=== PATIENT | female | born 1965 ===

== ENCOUNTER 2016-06-21 10:45 | Outpatient (CLI) | payer OTHER | END 2016-06-21 10:46 | disposition home or self-care (01) | DX: E55.9 Vitamin D deficiency, unspecified (principal); Z51.81 Encounter for therapeutic drug level monitoring; Z12.11 Encounter for screening for malignant neoplasm of colon ==

== ENCOUNTER 2017-05-30 09:29 | Outpatient (CLI) | payer OTHER ==
[2017-05-30 17:49] LABS: BASOPHILS % (AUTO) 0.5 %; EOSINOPHILS # (AUTO) 0.3 10^3/uL (0.0-0.7); HGB - HEMOGLOBIN 14.8 g/dL (12.0-16.0); LYMPHOCYTES # (AUTO) 2.5 10^3/uL (1.5-3.5); LYMPHOCYTES % (AUTO) 38.1 %; MEAN CORPUSCULAR HEMOGLOBIN 29.5 pg (27.0-31.0); MEAN CORPUSCULAR HGB CONC 33.3 g/dL (32.0-36.0); MEAN CORPUSCULAR VOLUME 88.5 fL (81.0-99.0); MEAN PLATELET VOLUME 7.4 fL (7.9-10.8); MONOCYTES # (AUTO) 0.4 10^3/uL (0.0-1.0); MONOCYTES % (AUTO) 6.9 %; NEUTROPHILS # (AUTO) 3.2 10^3/uL (1.5-6.6); NEUTROPHILS % (AUTO) 50.5 %; PLT - PLATELET COUNT 287 10^3/uL (130-450); RED BLOOD COUNT 5.02 10^6/uL (4.20-5.40); RED CELL DISTRIBUTION WIDTH 12.4 % (12.0-15.0); WHITE BLOOD COUNT 6.4 x10^3/uL (4.8-10.8)
[2017-05-30 18:09] LABS: ALBUMIN 4.3 g/dL (3.2-5.5); ALBUMIN/GLOBULIN RATIO 1.4 (1.0-2.2); ALKALINE PHOSPHATASE 39 IU/L (42-121); ALT ALANINE AMINOTRANSFERASE 17 IU/L (10-60); AST ASPARTATE AMINOTRANSFERASE 19 IU/L (10-42); BILIRUBIN,TOTAL 0.6 mg/dL (0.2-1.0); BUN - BLOOD UREA NITROGEN 17 mg/dL (6-20); CARBON DIOXIDE - CO2 29 mmol/L (21-32); CHLORIDE 104 mmol/L (101-111); CHOL/HDL RATIO 2.5 (<4.4); CHOLESTEROL 225 mg/dL; CREATININE 0.6 mg/dL (0.4-1.0); GFR - MDRD 105 (>89); GLUCOSE 86 mg/dL (70-100); HDL CHOLESTEROL 90 mg/dL; LDL CHOLESTEROL,CALCULATED 121 mg/dL; LDL/HDL RATIO 1.3 (<4.4); SODIUM 140 mmol/L (135-145); TOTAL PROTEIN 7.3 g/dL (6.7-8.2); VLDL CHOLESTEROL 14 mg/dL
== END 2017-05-30 09:30 | disposition home or self-care (01) ==
LOC: LAB.F 09:29
PROVIDERS: ATTEND Physician Assistant Medical
DX: Z00.00 Encounter for general adult medical examination without abnormal findings (principal); Z79.899 Other long term (current) drug therapy; E55.9 Vitamin D deficiency, unspecified
CPT/HCPCS: 36415; 80053; 80061; 82306; 84443; 85025

== ENCOUNTER 2019-09-11 17:06 | Outpatient (CLI) | payer OTHER | END 2019-09-11 17:07 | disposition home or self-care (01) | LOC: COV 17:06 | PROVIDERS: ATTEND Family Medicine | DX: R06.02 Shortness of breath (principal); R06.2 Wheezing; R53.83 Other fatigue; J02.9 Acute pharyngitis, unspecified | CPT/HCPCS: 81599 ==

== ENCOUNTER 2019-12-11 15:26 | Outpatient (CLI) | payer OTHER | END 2019-12-11 15:27 | disposition home or self-care (01) | LOC: LAB.S 15:26 | PROVIDERS: ATTEND Nurse Practitioner Family | DX: R53.81 Other malaise (principal); R53.83 Other fatigue | CPT/HCPCS: 36415; 81599; 84443; 85379; 86308; 86664; 86665; 86769 ==

== ENCOUNTER 2019-12-20 13:25 | Outpatient (CLI) | payer OTHER ==
--- NOTE | 2019-12-20 14:32 | XRAY Report ---
PROCEDURE: Chest 2 View X-Ray INDICATIONS: COUGH TECHNIQUE: 2 view(s) of the chest. COMPARISON: Chest x-ray examination dated 12.29.15. FINDINGS: Surgical changes and devices: None. Lungs and pleura: No pleural effusions or pneumothorax. Lungs are clear. Mediastinum: Mediastinal contours are normal. Heart size is normal. Bones and chest wall: No suspicious bony abnormalities. Soft tissues appear unremarkable. IMPRESSION: No acute process. Reviewed by: Derek Snow MD on 12/20/2019 2:30 PM PDT Approved by: Derek Snow MD on 12/20/2019 2:30 PM PDT Station ID: [id number]
== END 2019-12-20 13:26 | disposition home or self-care (01) ==
LOC: DI.S 13:25
PROVIDERS: ATTEND Nurse Practitioner Family
DX: R05 Cough (principal); R53.83 Other fatigue; R53.81 Other malaise
CPT/HCPCS: 36415; 71046; 81599; 84443; 85379; 86308; 86769

== ENCOUNTER 2020-07-24 13:31 | Outpatient (CLI) | payer OTHER ==
--- NOTE | 2020-07-24 14:06 | XRAY Report ---
PROCEDURE: Wrist 4 View LT INDICATIONS: PAIN IN LEFT FINGERS TECHNIQUE: 4 views of the wrist were acquired. COMPARISON: None FINDINGS: Bones: No fractures or dislocations. No suspicious bony lesions. Scaphoid view: Negative Soft tissues: No suspicious soft tissue calcifications. IMPRESSION: No acute fracture. No osseous lesion. If symptoms and/or clinical suspicion for pathology continue, f urther assessment with repeat plain films, or advanced imaging (e.g., CT, MRI, or bone scan) is recom mended for further assessment. Reviewed by: Derek Snow MD on 07/24/2020 1:05 PM [facility] Approved by: Derek Snow MD on 07/24/2020 1:05 PM [facility] Station ID: [id number]
--- NOTE | 2020-07-24 14:08 | XRAY Report ---
PROCEDURE: Hand 3 View LT INDICATIONS: PAIN IN LEFT FINGERS TECHNIQUE: 3 views of the hand(s) acquired. COMPARISON: None FINDINGS: Bones: No fractures or dislocations. No suspicious bony lesions. Soft tissues: No suspicious soft tissue calcifications. IMPRESSION: No acute fracture. No osseous lesion. If symptoms and/or clinical suspicion for pathology continue, f urther assessment with repeat plain films, or advanced imaging (e.g., CT, MRI, or bone scan) is recom mended for further assessment. Reviewed by: Derek Snow MD on 07/24/2020 1:07 PM [facility] Approved by: Derek Snow MD on 07/24/2020 1:07 PM [facility] Station ID: [id number]
== END 2020-07-24 13:32 | disposition home or self-care (01) ==
LOC: DI.S 13:31
PROVIDERS: ATTEND Nurse Practitioner Family
DX: M79.645 Pain in left finger(s) (principal)

== ENCOUNTER 2021-01-10 13:21 | Outpatient (CLI) | payer OTHER | END 2021-01-10 13:22 | disposition home or self-care (01) | LOC: LAB.S 13:21 | PROVIDERS: ATTEND Nurse Practitioner Family | DX: G93.3 Postviral and related fatigue syndromes (principal) | CPT/HCPCS: 36415 ==

== ENCOUNTER 2021-02-07 07:34 | Outpatient (CLI) | payer OTHER ==
[2021-02-07 14:20] LABS: BASOPHILS # (AUTO) 0.1 10^3/uL (0.0-0.1); BASOPHILS % (AUTO) 0.6 %; EOSINOPHILS # (AUTO) 0.3 10^3/uL (0.0-0.7); EOSINOPHILS % (AUTO) 3.9 %; HCT - HEMATOCRIT 44.3 % (37.0-47.0); HGB - HEMOGLOBIN 14.1 g/dL (12.0-16.0); LYMPHOCYTES # (AUTO) 3.9 10^3/uL (1.5-3.5); MEAN CORPUSCULAR HEMOGLOBIN 29.3 pg (27.0-31.0); MEAN CORPUSCULAR HGB CONC 31.8 g/dL (32.0-36.0); MEAN CORPUSCULAR VOLUME 92.1 fL (81.0-99.0); MEAN PLATELET VOLUME 9.9 fL (7.9-10.8); MONOCYTES # (AUTO) 0.6 10^3/uL (0.0-1.0); NEUTROPHILS # (AUTO) 3.3 10^3/uL (1.5-6.6); NEUTROPHILS % (AUTO) 40.3 %; PLT - PLATELET COUNT 274 10^3/uL (130-450); RED BLOOD COUNT 4.81 10^6/uL (4.20-5.40); WHITE BLOOD COUNT 8.2 x10^3/uL (4.8-10.8)
[2021-02-07 14:28] LABS: ALBUMIN 4.3 g/dL (3.2-5.5); ALBUMIN/GLOBULIN RATIO 1.5 (1.0-2.2); ALKALINE PHOSPHATASE 61 IU/L (42-121); ALT ALANINE AMINOTRANSFERASE 19 IU/L (10-60); AST ASPARTATE AMINOTRANSFERASE 20 IU/L (10-42); BILIRUBIN,TOTAL 0.7 mg/dL (0.2-1.0); BUN - BLOOD UREA NITROGEN 18 mg/dL (6-20); CALCIUM 9.1 mg/dL (8.5-10.3); CARBON DIOXIDE - CO2 28 mmol/L (21-32); CHLORIDE 101 mmol/L (101-111); CHOL/HDL RATIO 2.5 (<4.4); CHOLESTEROL 218 mg/dL; CREATININE 0.7 mg/dL (0.4-1.0); GFR - MDRD 87 (>89); GLUCOSE 97 mg/dL (70-100); HDL CHOLESTEROL 88 mg/dL; LDL CHOLESTEROL,CALCULATED 112 mg/dL; LDL/HDL RATIO 1.3 (<4.4); POTASSIUM 3.5 mmol/L (3.5-5.0); SODIUM 141 mmol/L (135-145); TOTAL PROTEIN 7.2 g/dL (6.7-8.2); TRIGLYCERIDES 91 mg/dL; VLDL CHOLESTEROL 18 mg/dL
== END 2021-02-07 07:35 | disposition home or self-care (01) ==
LOC: LAB.S 07:34
PROVIDERS: ATTEND Nurse Practitioner Family
DX: R53.82 Chronic fatigue, unspecified (principal); Z13.220 Encounter for screening for lipoid disorders
CPT/HCPCS: 36415; 80053; 80061; 83721; 85025

== ENCOUNTER 2021-05-05 08:42 | Outpatient (CLI) | payer OTHER ==
[2021-05-05] MEDS ORDERED: GADOBUTROL 10 MMOL/10 ML VIAL ONE (09:02)
[2021-05-05] MEDS: GADOBUTROL 10 MMOL/10 ML VIAL IVP ONE (09:33)
--- NOTE | 2021-05-05 10:32 | MRI Report ---
PROCEDURE: Brain W/WO INDICATIONS: CHRONIC HEADACHE CONTRAST: IV CONTRAST: Gadavist ml: 7.0 TECHNIQUE: Noncontrast axial T1 spin echo, axial T2 fast spin echo, sagittal and axial FLAIR, coronal T2 fast sp in echo, axial gradient echo, axial diffusion and ADC through the brain. After the administration of contrast, axial and coronal T1 spin echo with fat saturation through the brain. COMPARISON: None. FINDINGS: Image quality: Excellent. CSF spaces: Basal cisterns are patent. No extra-axial fluid collections. Ventricles are normal in size and shape. Brain: No midline shift. No intracranial bleeds or masses. No abnormal intracranial enhancement. There is mild cerebral volume loss for age. There is mild periventricular white matter chronic small vessel ischemic change. The brainstem appears normal. Diffusion-weighted images demonstrate no acu te ischemic insults. No chronic ischemic insults. Normal intravascular flow voids are present. The dural sinuses demonstrate normal postcontrast enhancement. Skull and face: Calvarial marrow is normal in signal. Orbits appear normal. Sinuses: Small mucous retention cyst versus polyp noted in the left maxillary sinus. Mild mucosal thi ckening in the floor of the right maxillary sinus. Mastoids appear clear. IMPRESSION: 1. No acute intracranial disease process. 2. No abnormal intracranial mass or mass effect. 3. No suspicious postcontrast enhancement. 4. Mild, diffuse cerebral volume loss. 5. Mild periventricular and subcortical white matter chronic microvascular ischemic change. Reviewed by: Shu Benton MD, PhD on 05/05/2021 10:30 AM [facility] Approved by: Shu Benton MD, PhD on 05/05/2021 10:30 AM [facility] Station ID: [id number]
== END 2021-05-05 08:43 | disposition home or self-care (01) ==
LOC: DI 08:42
PROVIDERS: ATTEND Psychiatry & Neurology Neurology
DX: G43.711 Chronic migraine without aura, intractable, with status migrainosus (principal); I67.82 Cerebral ischemia
CPT/HCPCS: 70553; A9585

== ENCOUNTER 2021-05-18 08:00 | Outpatient (CLI) | payer OTHER ==
[2021-05-18 15:38] LABS: THYROID STIMULATING HORMONE 1.34 uIU/mL (0.34-5.60)
== END 2021-05-18 23:59 | disposition home or self-care (01) ==
LOC: LAB.S 08:00
PROVIDERS: ATTEND Psychiatry & Neurology Neurology
DX: G43.711 Chronic migraine without aura, intractable, with status migrainosus (principal)
CPT/HCPCS: 36415; 82607; 83921; 84443

== ENCOUNTER 2021-06-06 14:53 | Outpatient (CLI) | payer OTHER ==
[2021-06-06 21:43] LABS: ALBUMIN 4.6 g/dL (3.2-5.5); ALBUMIN/GLOBULIN RATIO 1.5 (1.0-2.2); BILIRUBIN,TOTAL 0.6 mg/dL (0.2-1.0); CREATININE 0.6 mg/dL (0.4-1.0); TOTAL PROTEIN 7.7 g/dL (6.7-8.2)
[2021-06-06 21:50] LABS: CALCIUM 10.1 mg/dL (8.5-10.3)
== END 2021-06-06 14:54 | disposition home or self-care (01) ==
LOC: LAB.S 14:53
PROVIDERS: ATTEND Nurse Practitioner Family
DX: Z76.89 Persons encountering health services in other specified circumstances (principal); Z79.899 Other long term (current) drug therapy
CPT/HCPCS: 36415; 80053

== ENCOUNTER 2021-09-07 23:14 | Emergency (ER) | payer OTHER ==
[2021-09-07 23:26] VITALS: BP 160/89
--- NOTE | 2021-09-07 23:52 | ED Physician Documentation ---
PD HPI OPHTHO - Stated complaint Stated Complaint: RT EYE FLASH/BLURRY - Chief complaint Chief Complaint: Heent - History obtained from History obtained from: Patient - History of Present Illness Timing - onset: Enter time (0600), Today Timing - duration: Hours Timing - details: Abrupt onset, Still present Location: Right Quality / character: Other (blurring of vision floaters and flashes) Associated symptoms: No: Redness, Swelling, Tearing, Discharge, Matting, FB s ensation, Photophobia, Double vision, Decreased vision, Loss of vision, Headache Contributing factors: Other (has long covid) Similar symptoms before: Has not had sx before Recently seen: Not recently seen - Additional information Additional information: 56-year-old nearsighted Maura Gupta presented to the emergency department this evening with a chief complaint of some blurring of her vision that occurred this morning and was accompanied by floaters in the peripheral vision and later this evening by a flash in the peripheral vision. She has not had pain she has not had decrease in her visual acuity. She has not had this happen to her previously. She does have a history of long COVID after having COVID in July 2019. Review of Systems Constitutional: reports: Myalgias, Fatigue, Other ("brain fog" of long covid). denies: Fever, Chills Eyes: reports: Other (floaters, flashes and blurring of vision). denies: Decreased vision Ears: denies: Ear pain Nose: denies: Congestion Throat: denies: Sore throat Cardiac: denies: Chest pain / pressure Respiratory: denies: Dyspnea, Cough GI: reports: Diarrhea. denies: Abdominal Pain, Nausea, Vomiting Skin: denies: Rash Musculoskeletal: denies: Neck pain, Back pain Neurologic: denies: Generalized weakness, Focal weakness, Numbness PD PAST MEDICAL HISTORY - Past Medical History Past Medical History: Yes Neuro: Migraines Musculoskeletal: Other - Past Surgical History Past Surgical History: No - Present Medications Home Medications: Ambulatory Orders Medication Instructions Recorded Confirmed Duloxetine HCl [Cymbalta] 60 mg PO 09/07/21 Maraviroc 300 mg PO BID 09/07/21 09/07/21 Promethazine [Phenergan] 25 mg PO Q6H PRN 09/07/21 09/07/21 Sumatriptan Succinate [Imitrex] 100 mg PO PRN PRN 09/07/21 09/07/21 tiZANidine [Zanaflex] 8 mg PO Q8H 09/07/21 09/07/21 traMADol [Ultram] 100 mg PO Q6H 09/07/21 09/07/21 - Allergies Allergies/Adverse Reactions: Allergies Allergy/AdvReac Type Severity Reaction Status Date / Time No Known Drug Allergies Allergy Verified 09/07/21 23:26 - Social History Does the pt smoke?: No Smoking Status: Never smoker Does the pt drink ETOH?: No Does the pt have substance abuse?: No - Immunizations Immunizations are current?: Yes PD ED PE NORMAL - Vitals Vital signs reviewed: Yes (hypertensive) - General General: Alert and oriented X 3, No acute distress, Well developed/nourished - HEENT HEENT: Atraumatic, PERRL, EOMI - Neck Neck: Supple, no meningeal sign - Respiratory Respiratory: No respiratory distress - Derm Derm: Normal color, Warm and dry, No rash - Extremities Extremities: No deformity, No edema - Neuro Neuro: Alert and oriented X 3, race steward 2-12 intact, No motor deficit, No sensory deficit, Normal speech Eye Opening: Spontaneous Motor: Obeys Commands Verbal: Oriented GCS Score: 15 - Psych Psych: Normal mood, Normal affect Results - Vitals Vitals: Vital Signs - 24 hr 09/07/21 23:21 Temperature 36.4 C L Heart Rate 96 Respiratory 18 Rate Blood Pressure 160/89 H O2 Saturation 97 Oxygen O2 Source Room air Procedures - Bedside sono Bedside sono by EMP: With use of bedside ultrasound the right thigh is examined. There is evidence of vitreal detachment which is mild laterally. There does appear to be some debris in the vitreous as well. The images shared with the patient for photographing for follow-up. PD MEDICAL DECISION MAKING - ED course Complexity details: considered differential, d/w patient ED course: 56-year-old female with onset today of flashes and floaters in the right eye appears to have a partial vitreal detachment and follow-up with ophthalmology as indicated. I have had the patient photograph the images from our ultrasound exam today to share with the valve seater operator tomorrow. I have referred her to Dr. Nam. Departure - Departure Disposition: 01 Home, Self Care Clinical Impression: Vitreous detachment of right eye Condition: Stable Instructions: Flashes and Floaters Follow-Up: Kwesi Nam MD [Provider Admit Priv/Credential] - Comments: Marti, today it looks like you have a partial vitreal detachment and this is likely the cause of your visual disturbance. An urgent follow-up with the valve seater operator is indicated and I have referred you to Dr. Nam in [place] please call his office in the morning and indicate you are following up from the emergency department and need to be seen urgently.
== END 2021-09-08 00:18 | disposition home or self-care (01) ==
LOC: ED 23:14
DX: H43.811 Vitreous degeneration, right eye (principal)
CPT/HCPCS: 99281; 99283

== ENCOUNTER 2021-09-23 13:31 | Outpatient (CLI) | payer OTHER ==
[2021-09-23 20:10] LABS: ALBUMIN 4.1 g/dL (3.2-5.5); ALBUMIN/GLOBULIN RATIO 1.4 (1.0-2.2); BILIRUBIN,TOTAL 0.6 mg/dL (0.2-1.0); CALCIUM 9.3 mg/dL (8.5-10.3); CREATININE 0.5 mg/dL (0.4-1.0); POTASSIUM 4.2 mmol/L (3.5-5.0); TOTAL PROTEIN 7.1 g/dL (6.7-8.2)
[2021-09-25 08:08] LABS: EBV AB VCA IGG <18.0 U/mL (0.0-17.9); EBV AB VCA IGM <36.0 U/mL (0.0-35.9); EBV NUCLEAR ANTIGEN AB IGG >600.0 U/mL (0.0-17.9)
== END 2021-09-23 13:32 | disposition home or self-care (01) ==
LOC: LAB.S 13:31
DX: U07.1 COVID-19 (principal); R53.82 Chronic fatigue, unspecified
CPT/HCPCS: 36415; 80053; 86664; 86665

== ENCOUNTER 2021-11-07 13:35 | Outpatient (CLI) | payer SELFPAY | END 2021-11-07 13:36 | disposition home or self-care (01) | LOC: LAB 13:35 | PROVIDERS: ATTEND Family Medicine | DX: G93.3 Postviral and related fatigue syndromes (principal) | CPT/HCPCS: 36415 ==

== ENCOUNTER 2022-01-23 12:34 | Outpatient (CLI) | payer OTHER | END 2022-01-23 12:35 | disposition home or self-care (01) | LOC: LAB 12:34 | PROVIDERS: ATTEND Family Medicine | DX: Z01.89 Encounter for other specified special examinations (principal) | CPT/HCPCS: 36415 ==

== ENCOUNTER 2022-04-03 11:57 | Outpatient (CLI) | payer SELFPAY | END 2022-04-03 11:58 | disposition home or self-care (01) | LOC: LAB 11:57 | PROVIDERS: ATTEND Family Medicine | DX: Z01.89 Encounter for other specified special examinations (principal) | CPT/HCPCS: 36415 ==

== ENCOUNTER 2022-05-02 08:00 | Outpatient (CLI) | payer OTHER ==
[2022-05-02 14:39] LABS: BASOPHILS # (AUTO) 0.1 10^3/uL (0.0-0.1); BASOPHILS % (AUTO) 0.7 %; EOSINOPHILS # (AUTO) 0.4 10^3/uL (0.0-0.7); EOSINOPHILS % (AUTO) 4.7 %; HCT - HEMATOCRIT 39.7 % (37.0-47.0); LYMPHOCYTES # (AUTO) 3.7 10^3/uL (1.5-3.5); LYMPHOCYTES % (AUTO) 43.4 %; MEAN CORPUSCULAR HEMOGLOBIN 29.3 pg (27.0-31.0); MEAN CORPUSCULAR HGB CONC 32.7 g/dL (32.0-36.0); MEAN CORPUSCULAR VOLUME 89.6 fL (81.0-99.0); MEAN PLATELET VOLUME 9.7 fL (7.9-10.8); MONOCYTES # (AUTO) 0.6 10^3/uL (0.0-1.0); MONOCYTES % (AUTO) 7.3 %; NEUTROPHILS # (AUTO) 3.7 10^3/uL (1.5-6.6); NEUTROPHILS % (AUTO) 43.7 %; PLT - PLATELET COUNT 367 10^3/uL (130-450); RED BLOOD COUNT 4.43 10^6/uL (4.20-5.40); RED CELL DISTRIBUTION WIDTH 12.6 % (12.0-15.0); WHITE BLOOD COUNT 8.5 x10^3/uL (4.8-10.8)
[2022-05-02 15:29] LABS: ALBUMIN 4.1 g/dL (3.2-5.5); ALBUMIN/GLOBULIN RATIO 1.6 (1.0-2.2); ALKALINE PHOSPHATASE 44 IU/L (42-121); ALT ALANINE AMINOTRANSFERASE 17 IU/L (10-60); AST ASPARTATE AMINOTRANSFERASE 21 IU/L (10-42); BILIRUBIN,TOTAL 0.4 mg/dL (0.2-1.0); BUN - BLOOD UREA NITROGEN 23 mg/dL (6-20); CALCIUM 9.1 mg/dL (8.5-10.3); CARBON DIOXIDE - CO2 27 mmol/L (21-32); CHLORIDE 101 mmol/L (101-111); CHOL/HDL RATIO 2.3 (<4.4); CHOLESTEROL 175 mg/dL; CREATININE 0.9 mg/dL (0.4-1.0); GFR - MDRD 65 (>89); GLUCOSE 88 mg/dL (70-100); HDL CHOLESTEROL 75 mg/dL; LDL CHOLESTEROL,CALCULATED 75 mg/dL; MAGNESIUM 2.3 mg/dL (1.7-2.8); POTASSIUM 3.7 mmol/L (3.5-5.0); SODIUM 139 mmol/L (135-145); TOTAL PROTEIN 6.6 g/dL (6.7-8.2); TRIGLYCERIDES 127 mg/dL; VLDL CHOLESTEROL 25 mg/dL
[2022-05-02 15:36] LABS: CRP - C-REACTIVE PROTEIN < 1.0 mg/dL (0-1.0)
[2022-05-02 15:43] LABS: THYROID STIMULATING HORMONE 3.66 uIU/mL (0.34-5.60)
[2022-05-02 19:58] LABS: ESTIMATED AVERAGE GLUCOSE 103 mg/dL (70-100); HEMOGLOBIN A1c% 5.2 % (4.27-6.07)
[2022-05-03 04:09] LABS: VITAMIN D 25-HYDROXY 69.3 ng/mL (30.0-100.0)
[2022-05-03 08:10] LABS: EBV AB VCA IGG <18.0 U/mL (0.0-17.9); EBV AB VCA IGM <36.0 U/mL (0.0-35.9); EBV NUCLEAR ANTIGEN AB IGG >600.0 U/mL (0.0-17.9)
[2022-05-03 13:10] LABS: HSV 1 IGG TYPE SPEC <0.91 index (0.00-0.90); HSV 2 IGG TYPE SPEC <0.91 index (0.00-0.90)
== END 2022-05-02 23:59 | disposition home or self-care (01) ==
LOC: LAB.S 08:00
PROVIDERS: ATTEND Family Medicine
DX: M35.81 Multisystem inflammatory syndrome (principal); R53.82 Chronic fatigue, unspecified; E55.9 Vitamin D deficiency, unspecified; Z13.21 Encounter for screening for nutritional disorder
CPT/HCPCS: 36415; 80053; 80061; 82306; 82607; 82746; 83036; 83721; 83735; 84443; 85025; 85651; 86140; 86664; 86665; 86695; 86696

== ENCOUNTER 2022-11-13 10:04 | Outpatient (CLI) | payer OTHER ==
[2022-11-13 11:50] LABS: BASOPHILS # (AUTO) 0.1 10^3/uL (0.0-0.1); EOSINOPHILS # (AUTO) 0.5 10^3/uL (0.0-0.7); EOSINOPHILS % (AUTO) 6.8 %; HCT - HEMATOCRIT 44.6 % (37.0-47.0); HGB - HEMOGLOBIN 14.7 g/dL (12.0-16.0); LYMPHOCYTES # (AUTO) 3.2 10^3/uL (1.5-3.5); LYMPHOCYTES % (AUTO) 40.5 %; MEAN CORPUSCULAR HEMOGLOBIN 30.1 pg (27.0-31.0); MEAN CORPUSCULAR VOLUME 91.2 fL (81.0-99.0); MEAN PLATELET VOLUME 8.8 fL (7.9-10.8); MONOCYTES # (AUTO) 0.5 10^3/uL (0.0-1.0); MONOCYTES % (AUTO) 6.6 %; NEUTROPHILS # (AUTO) 3.6 10^3/uL (1.5-6.6); NEUTROPHILS % (AUTO) 44.8 %; PLT - PLATELET COUNT 398 10^3/uL (130-450); RED BLOOD COUNT 4.89 10^6/uL (4.20-5.40); RED CELL DISTRIBUTION WIDTH 11.4 % (12.0-15.0)
[2022-11-13 12:04] LABS: % IRON SATURATION 15 % (20-50); ALBUMIN 3.9 g/dL (3.2-5.5); ALBUMIN/GLOBULIN RATIO 1.3 (1.0-2.2); ALKALINE PHOSPHATASE 77 IU/L (42-121); ALT ALANINE AMINOTRANSFERASE 28 IU/L (10-60); AST ASPARTATE AMINOTRANSFERASE 23 IU/L (10-42); BILIRUBIN,TOTAL 0.5 mg/dL (0.2-1.0); BUN - BLOOD UREA NITROGEN 15 mg/dL (6-20); CALCIUM 8.8 mg/dL (8.5-10.3); CARBON DIOXIDE - CO2 27 mmol/L (21-32); CHLORIDE 105 mmol/L (101-111); CREATININE 0.7 mg/dL (0.4-1.0); GFR - MDRD 87 (>89); GLUCOSE 103 mg/dL (70-100); IRON 60 ug/dL (28-170); POTASSIUM 4.1 mmol/L (3.5-5.0); SODIUM 141 mmol/L (135-145); TOTAL IRON BINDING CAPACITY 402 ug/dL (250-450); TOTAL PROTEIN 6.9 g/dL (6.7-8.2); TRANSFERRIN 287 mg/dL (192-382)
[2022-11-13 12:05] LABS: CRP HIGH SENSITIVITY < 0.5 mg/L
[2022-11-13 12:13] LABS: THYROID STIMULATING HORMONE 1.48 uIU/mL (0.34-5.60)
[2022-11-13 12:22] LABS: FERRITIN 11.9 ng/mL (11.0-306.8)
[2022-11-13 12:24] LABS: FOLATE 18.63 ng/mL (5.90 - >24.8)
[2022-11-13 12:56] LABS: PARTIAL THROMBOPLASTIN TIME 30.9 secs (24.9-33.3)
[2022-11-13 13:04] LABS: ESTIMATED AVERAGE GLUCOSE 97 mg/dL (70-100)
[2022-11-14 04:08] LABS: ALPHA-1-ANTITRYPSIN SERUM 141 mg/dL (101-187)
[2022-11-14 06:09] LABS: THYROID PEROXIDASE (TPO) AB <9 IU/mL (0-34)
[2022-11-14 08:10] LABS: EBV AB VCA IGG <18.0 U/mL (0.0-17.9); EBV AB VCA IGM <36.0 U/mL (0.0-35.9); EBV NUCLEAR ANTIGEN AB IGG >600.0 U/mL (0.0-17.9)
[2022-11-15 08:10] LABS: METHYLMALONIC ACID SERUM 114 nmol/L (0-378)
[2022-11-15 16:08] LABS: BETA-2 GLYCOPROTEIN I IGA <9 (0-25); BETA-2 GLYCOPROTEIN I IGG <9 (0-20)
[2022-11-16 14:08] LABS: CYTOPLASMIC (C-ANCA) <1:20 titer (Neg:<1:20); PERINUCLEAR (P-ANCA) <1:20 titer (Neg:<1:20)
[2022-11-17 08:11] LABS: THYROTROPIN RECEPTOR AB SERUM <1.10 IU/L (0.00-1.75)
[2022-11-17 14:09] LABS: ALLOISOLEUCINE 1.5 umol/L (0.0-3.2); ALPHA-AMINOADIPATE <0.5 umol/L (0.0-1.9); ALPHA-AMINOBUTYRATE 10.5 umol/L (5.4-34.5); ARGININE 56.6 umol/L (36.3-119.2); ARGININOSUCCINATE <0.1 umol/L (0.0-3.0); ASPARAGINE 79.1 umol/L (29.5-84.5); ASPARTATE 2.1 umol/L (0.0-7.4); BETA-ALANINE 1.7 umol/L (1.1-9.0); BETA-AMINOISOBUTYRATE <0.5 umol/L (0.0-4.3); CITRULLINE 34.7 umol/L (15.6-46.9); CYSTATHIONINE <0.5 umol/L (0.0-0.7); CYSTINE 29.5 umol/L (15.8-47.3); GAMMA-AMINOBUTYRATE <0.5 umol/L (0.0-0.6); GLUTAMATE 68.3 umol/L (18.1-155.9); GLUTAMINE 492.6 umol/L (372.8-701.4); GLYCINE 346.7 umol/L (144.0-411.0); HOMOCITRULLINE <0.5 umol/L (0.0-1.7); HOMOCYSTINE <0.3 umol/L (0.0-0.2); HYDROXYLYSINE 0.2 umol/L (0.1-0.8); HYDROXYPROLINE 7.5 umol/L (4.7-35.2); ISOLEUCINE 47.7 umol/L (32.8-88.3); LYSINE 123.1 umol/L (94.0-278.0); METHIONINE 19.2 umol/L (14.7-35.2); ORNITHINE 64.3 umol/L (30.1-101.3); PHENYLALANINE 47.1 umol/L (35.8-76.9); PROLINE 155.9 umol/L (84.8-352.5); SERINE 112.4 umol/L (48.7-145.2); TAURINE 140.1 umol/L (29.2-132.3); THREONINE 104.4 umol/L (67.8-211.6); TRYPTOPHAN 55.9 umol/L (23.5-93.0); VALINE 168.2 umol/L (133.0-317.1)
[2022-11-20 16:08] LABS: 1,25-DIHYDROXY VITAMIN D-2 <10 pg/mL (.); 1,25-DIHYDROXY VITAMIN D-3 75 pg/mL (.); TOTAL 1,25-DIHYDROXYVITAMIN D 75 pg/mL (.)
[2022-11-21 22:07] LABS: ATYPICAL pANCA <1:20 titer (Neg:<1:20); BETA-2 GLYCOPROTEIN I IGM <9 (0-32); EBV EARLY ANTIGEN AB IGG <9.0 U/mL (0.0-8.9); MITOCHONDRIAL (M2) ANTIBODY <20.0 Units (0.0-20.0); VITAMIN A SERUM 61.8 ug/dL (20.1-62.0); VITAMIN D 25-HYDROXY 79.1 ng/mL (30.0-100.0)
== END 2022-11-13 10:05 | disposition home or self-care (01) ==
LOC: LAB 10:04
PROVIDERS: ATTEND Internal Medicine
DX: R51.9 Headache, unspecified (principal); R53.83 Other fatigue; R29.818 Other symptoms and signs involving the nervous system
CPT/HCPCS: 36415; 80053; 81599; 82103; 82139; 82306; 82525; 82607; 82652; 82728; 82746; 83036; 83090; 83519; 83520; 83540; 83605; 83615; 83625; 83721; 83880; 83921; 83970; 83986; 84255; 84443; 84466; 84484; 84590; 84630; 85025; 85245; 85379; 85597; 85598; 85610; 85613; 85670; 85730; 86037; 86038; 86141; 86146; 86147; 86160; 86225; 86235; 86256; 86355; 86357; 86359; 86360; 86376; 86381; 86663; 86664; 86665; 87799

== ENCOUNTER 2022-11-23 14:10 | Outpatient (CLI) | payer OTHER ==
[2022-11-26 22:07] LABS: COPPER SERUM OR PLASMA 117 ug/dL (80-158)
[2022-11-27 16:08] LABS: SELENIUM SERUM/PLASMA 129 ug/L (93-198)
== END 2022-11-23 14:11 | disposition home or self-care (01) ==
LOC: LAB.S 14:10
PROVIDERS: ATTEND Internal Medicine
DX: R51.9 Headache, unspecified (principal); R53.83 Other fatigue; R29.818 Other symptoms and signs involving the nervous system
CPT/HCPCS: 82525; 84255